=== PATIENT | female | born 1980 | race Caucasian/White ===

== ENCOUNTER → 2018-03-04 | Outpatient (CLI) | payer BC | LOC: COL.RAD 11:28 | DX: R22.1 Localized swelling, mass and lump, neck (principal) | CPT/HCPCS: Q9967 ==

== ENCOUNTER → 2021-04-19 | Outpatient (CLI) | payer BC | LOC: MC.RAD 14:15 | DX: Z12.31 Encounter for screening mammogram for malignant neoplasm of breast (principal); N63.42 Unspecified lump in left breast, subareolar ==

== ENCOUNTER → 2021-04-27 | Outpatient (CLI) | payer BC | LOC: MC.RAD 07:45 | DX: N63.20 Unspecified lump in the left breast, unspecified quadrant (principal) ==

== ENCOUNTER → 2021-05-16 | Outpatient (CLI) | payer BC | LOC: MC.RAD 07:56 | DX: N64.9 Disorder of breast, unspecified (principal); Z98.82 Breast implant status | CPT/HCPCS: A4648 ==

== ENCOUNTER → 2022-05-02 | Outpatient (CLI) | payer BC | LOC: MC.RAD 07:00 | DX: Z12.31 Encounter for screening mammogram for malignant neoplasm of breast (principal) ==

== ENCOUNTER → 2024-06-08 | Outpatient (CLI) | payer BC | LOC: COL.RAD 17:05 | DX: S97.82XA Crushing injury of left foot, initial encounter (principal) ==

== ENCOUNTER → 2024-06-10 | Outpatient (CLI) | payer BC | LOC: MC.RAD 07:12 | DX: Z12.31 Encounter for screening mammogram for malignant neoplasm of breast (principal); Z12.4 Encounter for screening for malignant neoplasm of cervix ==